=== PATIENT | male | born 1955 | race Caucasian/White ===

== ENCOUNTER → 2019-10-18 | Outpatient (CLI) | payer MEDICARE, SELFPAY | PROVIDERS: Family Provider Nurse Practitioner Family; Visit Provider Internal Medicine Critical Care Medicine | DX: R06.02 Shortness of breath (principal) | CPT/HCPCS: 36415; 82785 ==

== ENCOUNTER 2019-11-25 06:00 | Day surgery (SDC) | payer MEDICARE, SELFPAY ==
[2019-11-22 15:11] VITALS: BMI 38.5
[2019-11-25] VITALS (7 sets, daily range): BP systolic 133–148; BP diastolic 76–90; PULSE 72–97; RESP 16–18; TEMP 36.3–36.8; O2SAT 94–98
--- NOTE | 2019-11-25 05:53 | ECG_ITS ---
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 [email or web address]
[2019-11-25 06:27] LABS: Glucose Point of Care 153 mg/dL (70-110)
--- NOTE | 2019-11-25 06:29 | PM.HPUD ---
H&P update H&P Update: DATE OF SURGERY/PROCEDURE: 11/25/19 DATE H&P PERFORMED: 11/25/19 H&P UPDATE INFORMATION: H&P completed within last 30 days and No changes to prior documentation PREOP DIAGNOSIS: Pulmonary nodules with progressive dyspnea PRIMARY INDICATION FOR PROCEDURE: Progressive dyspnea with history of occupational exposure PLANNED PROCEDURE: Operation Date: 11/25/19 07:00 Proposed Procedures p Bronchoscopy(Not Applicable) - Jamil Rae MD Conscious Sedation: Patient reassessed prior to sedation, with no change noted: Yes PHYSICAL EXAM: alert, oriented x 3, clear to auscultation bilaterally and regular rate & rhythm ADDITIONAL INFORMATION: Anesthesia department will be providing general anesthesia. Full H&P Perinent History: Medical/Surgical History: Medical History (Updated 11/14/19 @ 10:51 by Jamil Rae MD) Pulmonary nodules/lesions, multiple (Acute) Family History: Family History (Updated 11/14/19 @ 10:32 by Dixie Garcia LPN) Other CAD (coronary artery disease) Diabetes Hypertension Social History: Social History Smoking and tobacco status: never smoked Alcohol intake: former Former alcohol use details: QUIT 20 YEARS AGO
[2019-11-25] MEDS: sodium chloride 0.9% 1,000 ML 30 ML IV (06:30)
--- NOTE | 2019-11-25 06:41 | ANES.PREANE2 ---
Pre-Anesthetic Assessment Pre-Anesthetic Assessment: Height/Weight: Height 1.88 m Weight 136.078 kg Temp Pulse Resp BP Pulse Ox 97.3 F L 77 18 145/90 94 11/25/19 06:32 11/25/19 06:32 11/25/19 06:32 11/25/19 06:32 11/25/19 06:32 Preop Diagnosis: Pulmonary nodules with progressive dyspnea Proposed Procedure: Operation Date: 11/25/19 07:00 Proposed Procedures p Bronchoscopy(Not Applicable) - Jamil Rae MD Was Beta Di taken within 24 hours: Yes Last intake: Intake Last Solid Date 11/24/19 Last Solid Time 16:00 Last Intake: 16:00 Social: Social History: No alcohol and No tobacco Exam: Pre-Anes Outpt Exam: alert, oriented x 3, clear to auscultation bilaterally and regular rate & rhythm Airway: Submandibular: WNL Cervical ROM: WNL MP: 2 Dentition: False Pulmonary: Pulmonary: Asthma CV/HEM: CV/HEM: Angina (Stable), CAD, HTN, RI and Murmur Comments: PTCA x3. Seen Dr Ewing 6 months ago. No CP 3-4 months : : None reported Hepatic: Hepatic: None reported GI: GI: GERD Comments: controlled Metabolic: Metabolic: DM Comments: 80-150 Musc/skel: Musc/skel: Lower Back Pain and OA/DJD Neuropsych: Neuropsych: Depression Anesthetic Plan: ASA status: III Anesthesia: Anesthesia Evaluation and General Risk of > 500 ml blood loss (7ml/kg in children): No Other Pertinent Information: ACDF, PTCA, GB with no complications PFSH Anesthesia PFSH: Medical History (Updated 11/14/19 @ 10:51 by Jamil Rae MD) Pulmonary nodules/lesions, multiple (Acute) Family History (Updated 11/14/19 @ 10:33 by Dixie Garcia LPN) Other CAD (coronary artery disease) Diabetes Hypertension Social History (Updated 11/14/19 @ 10:33 by Dixie Garcia LPN) Smoking and tobacco status: never smoked Alcohol intake: former Former alcohol use details: QUIT 20 YEARS AGO Data Anesthesia Other Labs: Laboratory Results - last 48 hr 11/25/19 06:24 POC Glucose 153 Cardiac Studies: No Data to Display
[2019-11-25 06:55] LABS: Hematocrit 41.9 % (42.0-52.0); Hemoglobin 13.9 g/dL (11.7-16.6); Mean Corpuscular HGB Conc 33.2 g/dL (30.0-36.0); Mean Corpuscular Hemoglobin 29.3 pg (28.0-34.0); Mean Corpuscular Volume 88.2 fL (80-94); Platelet Count 205 10^3/cmm (130-400); Red Blood Count 4.75 10^6/uL (4.1-5.3); White Blood Count 6.7 10^3/uL (4.0-10.0)
[2019-11-25] MEDS: cetacaine Spray 5 gm Can 1 SPRAY TOPICAL (06:58)
[2019-11-25 07:02] LABS: INR 1.04 (0.8-1.2)
[2019-11-25 07:06] LABS: Anion Gap 13.3 (5-19); Blood Urea Nitrogen 11 mg/dL (8-23); Calcium 9.1 mg/dL (8.5-10.5); Carbon Dioxide 27 mmol/L (22-29); Chloride 104 mmol/L (98-107); Glomerular Filtration Rate 85.5 mL/min (90-130); Glucose 168 mg/dL (74-106); Osmolality Calculated 290 mOsm/kg (285-295); Potassium 4.3 mmol/L (3.5-5.1); Sodium 140 mmol/L (136-145)
[2019-11-25 07:18] LABS: Absolute Segmented Neutrophil 3.2 10/cmm (1.6-7.1); Lymphocytes 28 %; Monocytes Absolute 0.9 10^3/cmm (0.1-0.6); Segmented Neutrophils 48 %; Total Cells Counted 100 (0-100)
[2019-11-25 07:19] LABS: Absolute Eosinophils 0.6 10^3/cmm (0.0-0.7); Eosinophils 10 %; Platelet Estimate Normal (Normal)
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
--- NOTE | 2019-11-25 07:48 | SUR.PHASEI ---
pt to pacu awake alert verbalized no pain or nausea , pt coughing strongly off and on vss. no distress
[2019-11-27 21:41] LABS: Legionella Specimen Source BRONCH
== END 2019-11-25 08:30 | disposition home or self-care (01) ==
PROVIDERS: Family Provider Nurse Practitioner Family; PCP Nurse Practitioner Family; Visit Provider Thoracic Surgery (Cardiothoracic Vascular Surgery)
PROC: 0BJ08ZZ Inspection of Tracheobronchial Tree, Via Natural or Artificial Opening Endoscopic (ICD-10-PCS; CPT 31622; principal; 2019-11-25 07:00)
DX: R91.1 Solitary pulmonary nodule (principal); R06.00 Dyspnea, unspecified; J45.909 Unspecified asthma, uncomplicated; I25.10 Atherosclerotic heart disease of native coronary artery without angina pectoris; I10 Essential (primary) hypertension; I25.2 Old myocardial infarction; Z95.5 Presence of coronary angioplasty implant and graft; K21.9 Gastro-esophageal reflux disease without esophagitis; E11.9 Type 2 diabetes mellitus without complications; M19.90 Unspecified osteoarthritis, unspecified site; F32.9 Major depressive disorder, single episode, unspecified; Z82.49 Family history of ischemic heart disease and other diseases of the circulatory system; Z83.3 Family history of diabetes mellitus; Z87.891 Personal history of nicotine dependence; Z79.4 Long term (current) use of insulin; Z79.82 Long term (current) use of aspirin
CPT/HCPCS: 31622; 12345; 36415; 36416; 80048; 82962; 85007; 85027; 85610; 87015; 87070; 87102; 87116; 87205; 87206; 87278; 87801; 93005; J0171; J0330; J2704; J3490; J7030

== ENCOUNTER → 2020-01-01 07:52 | Outpatient (BNVA) | payer MEDICARE, SELFPAY | PROVIDERS: Family Provider Nurse Practitioner Family; PCP Nurse Practitioner Family; Visit Provider Anesthesiology | DX: G89.29 Other chronic pain (principal); M54.5 Low back pain; M79.651 Pain in right thigh; M79.652 Pain in left thigh; M47.12 Other spondylosis with myelopathy, cervical region; M47.22 Other spondylosis with radiculopathy, cervical region; M43.22 Fusion of spine, cervical region; M25.511 Pain in right shoulder; M25.512 Pain in left shoulder; Z79.891 Long term (current) use of opiate analgesic | CPT/HCPCS: 99214 ==

== ENCOUNTER → 2020-05-12 08:13 | Outpatient (BNVA) | payer MEDICARE, SELFPAY | PROVIDERS: Family Provider Nurse Practitioner Family; PCP Nurse Practitioner Family; Visit Provider Anesthesiology | DX: G89.29 Other chronic pain (principal); M54.42 Lumbago with sciatica, left side; M54.41 Lumbago with sciatica, right side; M47.12 Other spondylosis with myelopathy, cervical region; M47.22 Other spondylosis with radiculopathy, cervical region; M43.22 Fusion of spine, cervical region; Z79.891 Long term (current) use of opiate analgesic | CPT/HCPCS: 99214 ==

== ENCOUNTER → 2020-07-14 08:01 | Outpatient (BNVA) | payer MEDICARE, SELFPAY | PROVIDERS: Family Provider Nurse Practitioner Family; PCP Nurse Practitioner Family; Visit Provider Anesthesiology | DX: G89.29 Other chronic pain (principal); M54.41 Lumbago with sciatica, right side; M54.42 Lumbago with sciatica, left side; M54.17 Radiculopathy, lumbosacral region; M47.12 Other spondylosis with myelopathy, cervical region; M43.22 Fusion of spine, cervical region; Z79.891 Long term (current) use of opiate analgesic | CPT/HCPCS: 99214 ==

== ENCOUNTER → 2020-09-11 07:51 | Outpatient (BNVA) | payer MEDICARE, SELFPAY | PROVIDERS: Family Provider Nurse Practitioner Family; PCP Nurse Practitioner Family; Visit Provider Anesthesiology | DX: G89.29 Other chronic pain (principal); M54.42 Lumbago with sciatica, left side; M54.17 Radiculopathy, lumbosacral region; M47.12 Other spondylosis with myelopathy, cervical region; M43.22 Fusion of spine, cervical region; Z79.891 Long term (current) use of opiate analgesic | CPT/HCPCS: 99213; 99214 ==

== ENCOUNTER → 2020-11-18 08:24 | Outpatient (BNVA) | payer MEDICARE, SELFPAY | PROVIDERS: Family Provider Nurse Practitioner Family; PCP Nurse Practitioner Family; Visit Provider Anesthesiology | DX: G89.29 Other chronic pain (principal); M54.42 Lumbago with sciatica, left side; M47.12 Other spondylosis with myelopathy, cervical region; M47.22 Other spondylosis with radiculopathy, cervical region; Z79.891 Long term (current) use of opiate analgesic | CPT/HCPCS: 99213 ==

== ENCOUNTER 2020-12-17 09:01 | Outpatient (CLI) | payer MEDICARE, SELFPAY ==
--- NOTE | 2020-12-17 09:17 | CT_ITS ---
WS: [id number] CTA OF THE CHEST WITH PULMONARY EMBOLISM PROTOCOL TECHNIQUE: High-resolution contrast enhanced CTA of the chest with coronal and sagittal reformatted i mages with pulmonary embolism protocol. MIP images are also reviewed. CLINICAL INFORMATION: SHORTNESS OF BREATH/CHEST PAIN AT REST/WEAKNESS/DIZZINESS COMPARISON: CT April 13, 2018 DLP: 621.[address] scans at [facility] use at least one of these dose optimization techniques: automat ed exposure control; mA and/or kV adjustment per patient size (includes targeted exams where dose is matched to clinical indication); or iterative reconstruction. FINDINGS: Proximal main pulmonary arteries are normal. Normal segmental and subsegmental pulmonary arteries. No filling defects. No evidence of pulmonary embolus. Vascular calcification including coronary. Mild chronic emphysematous changes. No acute pulmonary infiltrates. No focal consolidation pleural fl uid. A few subcentimeter noncalcified pulmonary nodules largest right lower lobe measuring 4 mm and r ight upper lobe measuring 5 mm. Normal GE junction. Cholecystectomy clips. Fatty atrophy of the pancreas. Hypertrophic changes thoracic spine. Partially visualized left renal c yst measuring 2.[address]/CT angio chest PE protcl [id number] IMPRESSION: 1. Proximal main pulmonary arteries are normal. No filling defects. No evidenc e of pulmonary embolus. 2. Mild chronic emphysematous changes. No acute pulmonary infiltrates. 3. A few small subcentimeter noncalcified pulmonary nodules largest in the rig ht lower lobe measuring 4 mm and right upper lobe measuring 5 mm. Recommend 12 month follow-up. Recommend 12 month follow-up.
--- NOTE | 2020-12-17 09:17 | XR_ITS ---
WS: [id number] Exam: XR lumbar spine 6V w f/e [id number] Date/Time of Exam: 12/17/2020 9:51 AM Reason For Exam: LOW BACK PAIN RADIATING TO BOTH LEGS Comparison 01/18/2017. No fracture or dislocation. Disc spaces are preserved. Mild spondylosis. No significant subluxation o r instability seen on flexion or extension views. Mild facet DJD at all levels. Mild levoscoliosis. P osterior elements are otherwise intact. Probable bone hemangiomas in the L3 and L4 vertebra represent ing an incidental finding. XR/XR lumbar spine 6V w f/e [id number] IMPRESSION: 1. No fracture or malalignment. 2. No significant subluxation or instability noted on flexion or extension view s. 3. Mild degenerative changes.
--- NOTE | 2020-12-17 09:17 | USCV_ITS ---
Arturo Hernandez Age: 65 Gender: M : 1955 Exam Date: 12/17/2020 09:47 Ordering Phys: Ally Carroll NP Technologist: Savi Gross [place] [facility] [place]: DIZZINESS Risk Factors: Previous Vascular Surgery: Right Brachial BP: / Left Brachial BP: / Right Left Velocity (cm/s) Spectral Plaque Velocity (cm/s) Spectral Plaque Syst/Diast Broadening Syst/Diast Broadening 62.20/ 10.10 Prox CCA 50.40 / 10.10 59.70/ 12.60 Mid CCA 60.50 / 11.10 45.40/ 10.90 Distal CCA 71.80 / 12.90 52.80/ 16.70 Prox ICA 35.50 / 13.70 41.10/ 11.10 Mid ICA 56.40 / 17.70 32.40/ 9.40 Distal ICA 48.20 / 14.10 72.30 ECA 51.80 0.88 ICA/CCA 0.93 Not Vertebral Antegrade Visualized / cm/s 17.70/ 6.80 cm/s Tri Subclavian Tri 37.70 46.70 CONCLUSIONS Right ICA stenosis <50%. Left ICA stenosis <50%. Normal antegrade Doppler flow noted in the left vertebral artery. RIght vertebral artery not visualized Arturo Nesbitt MD (Electronically Signed) Final Date: 17 December 2020 10:21 S
--- NOTE | 2020-12-17 09:17 | USCV_ITS ---
Arturo fernández Age: 65 Gender: M : 1955 Exam Date: 12/17/2020 09:34 Ordering Phys: Ally Carroll NP Technologist: Savi Gross Exam Location: [facility] [place] Indication: SHORTNESS OF BREATH BP: 122 / 58 HR: 59 Rhythm: Sinus Technical Quality: Adequate MEASUREMENTS (Male / Female) Normal Values 2D ECHO LV Diastolic Diameter PLAX 4.6 cm 4.2 - 5.9 / 3.9 - 5.3 cm LV Systolic Diameter PLAX 3.0 cm LV Chamber Size 4.0 cm IVS Diastolic Thickness 1.2 cm 0.6 - 1.0 / 0.6 - 0.9 cm IVS Systolic Thickness 1.5 cm LVPW Diastolic Thickness 2.6 cm 0.6 - 1.0 / 0.6 - 0.9 cm LVPW Systolic Thickness 2.3 cm RV Chamber Size 3.0 cm LVOT Diameter 2.0 cm LV Ejection Fraction 2D Teich 63.7 % LV Ejection Fraction MOD 2C 25.0 % LV Ejection Fraction 2C AL 30.4 % LA Diameter 3.7 cm LA Width 4.0 cm LA Height 5.1 cm RA Width 4.1 cm RA Height 4.0 cm Aorta at Sinotubular Diameter 3.5 cm M-MODE LV Diastolic Diameter MM 5.3 cm 4.2 - 5.9 / 3.9 - 5.3 cm LV Systolic Diameter MM 3.6 cm LV Ejection Fraction MM Teich 60.0 % IVS Diastolic Thickness MM 0.9 cm 0.6 - 1.0 / 0.6 - 0.9 cm IVS Systolic Thickness MM 1.4 cm LVPW Diastolic Thickness MM 1.9 cm 0.6 - 1.0 / 0.6 - 0.9 cm LVPW Systolic Thickness MM 2.1 cm Aortic Annulus Diameter 4.2 cm LA Ao Ratio MM 1.0 MV E Point Septal Separation 1.4 cm DOPPLER AV Peak Velocity 119.0 cm/s LVOT Peak Velocity 100.0 cm/s AV Area Cont Eq vti 2.8 cm squared AV Area Cont Eq pk 2.7 cm squared MV Area PHT 2.4 cm squared Mitral E to A Ratio 0.8 MV E' Velocity 30.0 cm/s Mitral E to MV E' Ratio 5.2 Mitral E to LV E' Lateral Ratio 5.0 Mitral E to LV E' Septal Ratio 5.5 TR Peak Velocity 180.3 cm/s TR Peak Gradient 13.0 mmHg TV Peak E Velocity 46.0 cm/s Right Atrial Pressure 3.0 mmHg Pulmonary Artery Systolic Pressu 16.0 mmHg PV Peak Velocity 69.0 cm/s RV Acceleration Time 0.2 s RV Ejection Time 0.4 s RV AcT/ET 0.5 FINDINGS Left Ventricle Normal left ventricular size, systolic function and wall thickness, with no diagnostic regional wall motion abnormalities. Left ventricular ejection fraction is estimated at 60 %. Normal diastolic function. Right Ventricle Normal right ventricular size and systolic function. Right ventricular systolic pressure 16 mmHg. Right Atrium Normal right atrial size. Left Atrium Upper normal left atrial size. Mitral Valve Structurally normal mitral valve. No mitral valve stenosis. No mitral valve regurgitation. Aortic Valve Structurally normal trileaflet aortic valve. No aortic valve stenosis. No aortic valve regurgitation. Tricuspid Valve Structurally normal tricuspid valve. Trace to mild tricuspid valve regurgitation. Pulmonic Valve Pulmonic valve not well visualized. No pulmonary valve stenosis. Pericardium No pericardial effusion. Aorta Normal size aortic root and proximal ascending aorta. CONCLUSIONS 1. Normal left ventricular size, systolic function and wall thickness, with no diagnostic regional wall motion abnormalities. Left ventricular ejection fraction is estimated at 60 %. Normal diastolic function. 2. No significant valvular abnormality. 3. Normal pulmonary artery pressure. 4. When compared to previous study report dated 12/03/2013, left ventricular systolic function seems to have improved. Emily Rangel MD (Electronically Signed) Final Date: 22 December 2020 22:57 S
--- NOTE | 2020-12-17 09:17 | XR_ITS ---
WS: [id number] Exam: XR thoracic spine 3V* [id number] Date/Time of Exam: 12/17/2020 9:51 AM Reason For Exam: LOW BACK PAIN RADIATING TO BOTH LEGS No acute fracture or dislocation. There is spondylosis and degenerative disc changes at all levels. M ild dextroscoliosis. Paraspinal soft tissues are unremarkable. Anterior fusion of the cervical spine from C3 to C5. XR/XR thoracic spine 3V* [id number] IMPRESSION: 1. Degenerative changes and spondylosis of the T-spine but no fracture or malal ignment. Dextroscoliosis.
[2020-12-17 10:36] LABS: Blood Urea Nitrogen 10 mg/dL (8-23); Glomerular Filtration Rate 113.9 mL/min (90-130)
[2020-12-17] MEDS: iohexol 350 mg/mL 100 mL Btl IV (11:10)
== END 2020-12-17 09:02 | disposition home or self-care (01) ==
LOC: RAD 09:08
PROVIDERS: PCP Nurse Practitioner Family; Visit Provider Nurse Practitioner Family
DX: R06.02 Shortness of breath (principal); R07.9 Chest pain, unspecified; R53.1 Weakness; R42 Dizziness and giddiness; M47.814 Spondylosis without myelopathy or radiculopathy, thoracic region; R91.8 Other nonspecific abnormal finding of lung field; I65.23 Occlusion and stenosis of bilateral carotid arteries
CPT/HCPCS: 71275; 72072; 72114; 82565; 84520; 93306; 93880

== ENCOUNTER → 2021-01-12 10:14 | Outpatient (BNVA) | payer MEDICARE, SELFPAY | PROVIDERS: PCP Nurse Practitioner Family; Visit Provider Anesthesiology | DX: G89.29 Other chronic pain (principal); M54.17 Radiculopathy, lumbosacral region; M47.12 Other spondylosis with myelopathy, cervical region; M43.22 Fusion of spine, cervical region; Z79.891 Long term (current) use of opiate analgesic | CPT/HCPCS: 99213 ==

== ENCOUNTER → 2021-03-12 10:21 | Outpatient (BNVA) | payer MEDICARE, SELFPAY | PROVIDERS: PCP Nurse Practitioner Family; Visit Provider Anesthesiology | DX: G89.29 Other chronic pain (principal); M47.22 Other spondylosis with radiculopathy, cervical region; M47.12 Other spondylosis with myelopathy, cervical region; M43.22 Fusion of spine, cervical region; Z79.891 Long term (current) use of opiate analgesic | CPT/HCPCS: 99214 ==

== ENCOUNTER 2021-04-27 12:52 | Outpatient (CLI) | payer MEDICARE, SELFPAY ==
--- NOTE | 2021-04-27 13:02 | US_ITS ---
WS: [id number] DIAGNOSTIC BILATERAL DIGITAL MAMMOGRAM WITH CAD RIGHT breast ultrasound, limited HISTORY: RT BREAST MASS, prior RIGHT breast biopsy was benign. COMPARISON: 08/24/2018 and 01/31/2018 TECHNIQUE: Bilateral craniocaudad, mediolateral oblique, and mediolateral views are submitted. Spot c ompression RIGHT CC. Computer aided detection utilized. Breast composition: The breasts are almost entirely fatty. Dense fibroglandular pattern posterior to the RIGHT nipple. This has progressed since the prior study of 08/24/2018. There is a biopsy clip in t he anterior breast from the prior biopsy. No adenopathy. The LEFT breast is fatty replaced as expecte d. RIGHT breast ultrasound, limited. Ultrasound directed to the central RIGHT breast in the area of the palpable abnormality. There is a s oft tissue mass with dendritic-like extensions measuring 5.0 x 2.4 x 1.6 cm. There is increased vascu larity. Most typical appearance for gynecomastia. No adenopathy. 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 No adenopathy.
== END 2021-04-27 12:53 | disposition home or self-care (01) ==
LOC: RADSHAW 12:55
PROVIDERS: PCP Nurse Practitioner Family; Visit Provider Nurse Practitioner Family
DX: N63.10 Unspecified lump in the right breast, unspecified quadrant (principal)
CPT/HCPCS: 76642; 77066

== ENCOUNTER → 2021-05-06 08:44 | Outpatient (BNVA) | payer MEDICARE, SELFPAY | PROVIDERS: PCP Nurse Practitioner Family; Visit Provider Anesthesiology | DX: G89.29 Other chronic pain (principal); M54.5 Low back pain; M47.12 Other spondylosis with myelopathy, cervical region; M47.22 Other spondylosis with radiculopathy, cervical region; M43.22 Fusion of spine, cervical region; Z79.891 Long term (current) use of opiate analgesic | CPT/HCPCS: 99214 ==

== ENCOUNTER → 2021-07-13 08:53 | Outpatient (BNVA) | payer MEDICARE, SELFPAY | PROVIDERS: PCP Nurse Practitioner Family; Visit Provider Nurse Practitioner | DX: G89.29 Other chronic pain (principal); M43.22 Fusion of spine, cervical region; M47.12 Other spondylosis with myelopathy, cervical region; M47.22 Other spondylosis with radiculopathy, cervical region; Z79.891 Long term (current) use of opiate analgesic | CPT/HCPCS: 99214 ==

== ENCOUNTER 2021-12-01 09:54 | Outpatient (CLI) | payer MEDICARE, SELFPAY ==
--- NOTE | 2021-12-01 10:25 | CT_ITS ---
WS: [id number] CT CHEST TECHNIQUE: Noncontrast CT of the chest with coronal and sagittal reformatted images. CLINICAL INFORMATION: LUNG NODULE,MULTIPLE COMPARISON: CT December 17, 2020 And April 13, 2018 DLP: 777.[address] scans at [facility] use at least one of these dose optimization techniques: automated e xposure control; mA and/or kV adjustment per patient size (includes targeted exams where dose is matc hed to clinical indication); or iterative reconstruction. FINDINGS: Lungs are well aerated. No acute pulmonary infiltrates. No focal pneumonia or pleural fluid. Normal c aliber thoracic aorta. Mild aortic calcification. Coronary stent. No mediastinal or hilar lymphadenop athy. No axillary lymphadenopathy. Adrenal glands are normal. Fatty atrophy of the pancreas. Cholecystectomy clips. Normal GE junction. Hypertrophic changes thoracic spine with mild thoracic kyphosis. Stable 4 mm pulmonary nodule RIGHT l ower lobe. 5 mm subpleural nodule not visualized today. Additional tiny RIGHT lower lobe medial pulmo nary nodule unchanged. Tiny LEFT lower lobe pulmonary nodule medially also unchanged. No new pulmonar y nodules. CT/CT chest wo con [id number] IMPRESSION: 1. A few stable subcentimeter pulmonary nodules the largest in the RIGHT lower lobe measuring 4 mm unchanged. Recommend 12 month follow-up. 2. No mediastinal or hilar lymphadenopathy. 3. No other significant findings.
== END 2021-12-01 09:55 | disposition home or self-care (01) ==
PROVIDERS: PCP Nurse Practitioner Family; Visit Provider Surgery
DX: R91.8 Other nonspecific abnormal finding of lung field (principal)
CPT/HCPCS: 71250

== ENCOUNTER 2021-12-06 09:33 | Outpatient (CLI) | payer MEDICARE, SELFPAY ==
[2021-12-06] MEDS: iohexol 300 mg/mL 50 mL Btl PO (11:04)
[2021-12-06 11:10] LABS: Blood Urea Nitrogen 10 mg/dL (8-23)
--- NOTE | 2021-12-06 12:00 | CT_ITS ---
WS: [id number] CT ABDOMEN AND PELVIS WITH CONTRAST HISTORY: R10.9 - Unspecified abdominal pain TECHNIQUE: Imaging performed of the abdomen and pelvis with IV contrast. Single phase imaging of the abdomen. Coronal and sagittal reformats are submitted. All CT scans at [facility] use at [address] one of these dose optimization techniques: automated exposure control; mA and/or kV adjustment per patient size (includes targeted exams where dose is matched to clinical indication); or iterative re construction. IV CONTRAST: Omnipaque 300; 95 mL IV. Oral contrast: Yes. DLP: 1413.03 mGy.cm COMPARISON: 11/28/2017 Lower thorax: Lung bases are clear. Heart is normal size. Small hiatal hernia. Liver/biliary system: Normal size with no intrahepatic dilatation. Gallbladder: Status post cholecystectomy. No bile duct dilatation. Pancreas: Fatty replacement of the pancreas. No mass. Spleen: Normal size spleen. No mass or infarct. Adrenal glands: Normal. Right kidney: Normal. Left kidney: Normal size LEFT kidney. There are 2 low-attenuation masses associated with the LEFT kid belen. Both of these were present on the study of 11/28/2017 without significant increase in size. The la rgest measures 2.5 cm in the upper pole posteriorly. Additional anterior upper pole 2.2 cm low-attenu ation mass. Neither of these are cystic but they are stable and may be complex cysts or hemorrhagic c yst. Aorta: Mild atherosclerosis with no aneurysm. Lymphadenopathy: None. Free fluid: None. GI tract: Normally distended stomach. No small bowel obstruction. Moderate diffuse constipation and f ecal retention. No evidence for sinusitis. No acute inflammation. Very few diverticula in the distal colon. Abdominal wall: Unremarkable abdominal wall. No hernia. Pelvis: Normally distended urinary bladder. Prostate is not significantly enlarged. No adenopathy or fluid. Bones: Increase in the lumbar lordosis. No osteoblastic or osteolytic bone disease. Moderate narrowin g of the hip joints bilaterally. Mild bilateral sacroiliitis. Partial fusion of the SI joints. CT/CT abdomen pelvis w con* [id number] IMPRESSION: 1. Status post cholecystectomy. 2. No adenopathy or free fluid. 3. Long-term stability low-attenuation masses associated with the LEFT kidney. No increase in size since 11/28/2017. These may be complex cysts or very slow gr owing low-grade neoplasms. 4. Mild constipation. 5. Partial fusion of the SI joints.
== END 2021-12-06 09:34 | disposition home or self-care (01) ==
LOC: RAD 09:39
PROVIDERS: PCP Nurse Practitioner Family; Visit Provider Surgery
DX: R10.9 Unspecified abdominal pain (principal); Z98.890 Other specified postprocedural states; Z87.19 Personal history of other diseases of the digestive system; Z90.49 Acquired absence of other specified parts of digestive tract; K59.00 Constipation, unspecified; N28.9 Disorder of kidney and ureter, unspecified
CPT/HCPCS: 74177; 82565; 84520

== ENCOUNTER 2021-12-14 10:40 | Outpatient (CLI) | payer MEDICARE, SELFPAY ==
--- NOTE | 2021-12-14 10:57 | XR_ITS ---
WS: [id number] Exam: XR cervical spine min 6V [id number] Date/Time of Exam: 12/14/2021 11:01 AM Reason For Exam: CERVICAL PAIN Comparison 05/23/2017. Anterior cervical fusion noted from C3 to C5 with disc spacers at C3-4 and C4-5. The fusion remains i n good alignment. No sign of hardware failure. Mild facet DJD at all levels. No flexion or extension instability. The odontoid is intact. There is mild narrowing of the intervertebral foramina bilateral ly at C3-4 and C4-5. This is secondary to uncovertebral spurring. Normal paraspinal soft tissues. XR/XR cervical spine min 6V [id number] IMPRESSION: 1. Stable-appearing anterior fusion from C3 to C5. The fusion remains in good a lignment. 2. Mild facet DJD at all levels. 3. No fracture or instability. 4. Mild degenerative narrowing of the intervertebral foramina bilaterally at C3 -4 and C4-5.
--- NOTE | 2021-12-14 10:57 | XR_ITS ---
WS: [id number] Exam: XR knee LT 3V* [id number] Date/Time of Exam: 12/14/2021 11:01 AM Reason For Exam: INJURY OF L KNEE Comparison 03/13/2019. No fracture or dislocation. Mild degenerative narrowing of the medial joint compartment. No joint eff usion. Stable appearing cortical calcification along the medial tibial plateau. Mild spurring of the posterior patella. XR/XR knee LT 3V* [id number] IMPRESSION: 1. Degenerative changes. No evidence of fracture or joint effusion. Nasima goncalves since prior study.
== END 2021-12-14 10:41 | disposition home or self-care (01) ==
LOC: RAD 10:45
PROVIDERS: PCP Nurse Practitioner Family; Visit Provider Nurse Practitioner Family
DX: S89.92XA Unspecified injury of left lower leg, initial encounter (principal); X58.XXXA Exposure to other specified factors, initial encounter; M47.812 Spondylosis without myelopathy or radiculopathy, cervical region; Z98.1 Arthrodesis status
CPT/HCPCS: 72052; 73562

== ENCOUNTER 2021-12-21 06:56 | Outpatient (CLI) | payer MEDICARE, SELFPAY ==
--- NOTE | 2021-12-21 07:04 | US_ITS ---
WS: [id number] ULTRASOUND ABDOMEN CLINICAL INFORMATION: ABDOMINAL PAIN OF UNKNOWN ETIOLOGY COMPARISON: Prior CT December 06, 2021 and 2 ,018 FINDINGS: Technically difficult examination due to bowel gas Liver Size: Enlarged Craniocaudal length: 18.5 cm. Echogenicity: Coarse Surface nodularity: None. Mass (size and location): None. Bile ducts Intrahepatic ducts: Normal. Common bile duct diameter: 11 mm. Gallbladder Surgically absent Pancreas Not well seen due to bowel gas Spleen Splenomegaly: Present Craniocaudal length: 13.5 cm. Right kidney: Normal. Hydronephrosis: None. Size: 12.2 cm x 5.7 cm x 5.7 cm Left kidney: LEFT kidney simple cyst measuring 2.4 x 1.8 x 1.9 cm Hydronephrosis: None. Size: 12.9 cm x 5.7 cm x 5.4 cm. Abdominal aorta and IVC Visualized portions are normal. Ascites: None. US/US abdomen complete* [id number] IMPRESSION: Technically difficult examination due to bowel gas. 1. Mild hepatomegaly with diffuse fatty infiltration.. 2. Prior cholecystectomy. 3. No hydronephrosis in either kidney. 4. Splenomegaly. 5. Dilated common bile duct measuring 11 mm likely cyst physiologic postcholec ystectomy. This appears unchanged since 2018 6. LEFT kidney simple cyst measuring 2.4 x 1.8 x 1.9 cm
== END 2021-12-21 06:57 | disposition home or self-care (01) ==
LOC: RAD 06:59
PROVIDERS: PCP Nurse Practitioner Family; Visit Provider Nurse Practitioner Family
DX: R16.0 Hepatomegaly, not elsewhere classified (principal); K76.0 Fatty (change of) liver, not elsewhere classified; Z90.49 Acquired absence of other specified parts of digestive tract; R16.1 Splenomegaly, not elsewhere classified; N28.1 Cyst of kidney, acquired
CPT/HCPCS: 76700

== ENCOUNTER → 2023-05-30 13:53 | Outpatient (BNVA) | payer MEDICARE, SELFPAY | PROVIDERS: PCP Nurse Practitioner Family; Visit Provider Internal Medicine | DX: R07.9 Chest pain, unspecified (principal); I25.10 Atherosclerotic heart disease of native coronary artery without angina pectoris; I10 Essential (primary) hypertension | CPT/HCPCS: 93005; 99214 ==

== ENCOUNTER 2023-06-21 07:11 | Outpatient (CLI) | payer MEDICARE, SELFPAY ==
[2023-06-21] VITALS (14 sets, daily range): BP systolic 108–165; BP diastolic 69–98; PULSE 55–65; RESP 4–20; O2SAT 93–98; BMI 39.8
[2023-06-21] MEDS: diphenhydrAMINE 50 mg Capsule PO (07:30)
--- NOTE | 2023-06-21 07:30 | XACV_ITS ---
Exam Room: 2 Ht: 188 cm Wt: 141 kg BSA: 2.76 m2 Gender: Male : 1955 Any Known Allergies: Other Exam Priority: Routine Procedure(s): Procedure Description: Diagnostic procedure Procedure Description: Miscellaneous Procedure Description: Angio-Seal Procedure Description: Coronary Angiography Procedure Description: Pressure Wire Diagnostic Cath Status: Elective Diagnostic Findings * Left Main has no significant disease. * Circumflex has no significant disease. * Right Coronary Artery has no significant disease. * Mid Left Anterior Descending: moderate 50% in-stent restenosis, CARL: 3 flow. * Coronary angiography shows right dominance. PCI Status: Elective Interventional Findings * PROCEDURE DETAIL: We engaged left main artery with XB 4 guide catheter. IV heparin was administered to maintain anticoagulation. After normalization, IFR wire was advanced into distal vessel. iFR of the mid LAD in-stent restenosis showed a value of 0.93 that was nonischemic. At this time final angiogram was performed. iFR wire and guide catheter were removed. Patient left the Residential Worker in a stable condition.. Conclusions 1. Moderate in-stent restenosis of mid LAD 2. stent. S/p IFR 3. that is nonischemic with a value of 0.93. 4. Medical therapy.. Recommendations * Aggressive risk factor modification. * Outpatient cardiology follow up in 4 weeks. Interventional RX Recommendation: medical therapy and/or counseling Anticoagulation: Heparin Pressures Phase:Rest AO : 123 / 93 ( 110 ) @ 9:46:00 AM 122 / 92 ( 108 ) @ 9:47:00 AM 143 / 86 ( 110 ) @ 9:56:00 AM 142 / 83 ( 110 ) @ 10:08:00 AM Clinical Evaluation EBL: 5mL-10mL Procedural Details Procedure Consent Obtained. Pre-Procedure Time Out. Identified patient by full name and date of as verbalized by the patient/guarantor. Does the consent match the physician's order: Yes. Accurate & Complete Informed Consent: Yes. Inpatient/Outpatient History & Physical on Chart: Yes. If H&P is completed, is and addenduem needed: No. Visualize and Verify Site with Patient/Guarantor: N/A. Relevant Radiology Images available: Yes. The risks, benefits, and alternatives of sedation and/or procedure were discussed by physician. The patient agrees to continue. Procedure started. [facility] Clinical Fraility Score: 3: Managing Well. Residential Worker Indications: Worsening Angina. Chest Pain Symptom Assessment: Typical Angina Symptoms. Cardiovascular Instability: No. Correct patient, site and procedure confirmed by cath team. PERRLA. Strong, equal hand model builder bilaterally. Lungs clear x 5 lobes. IV Site on Arrival: 20 gauge in the left anticubital. IV Fluids: 0.9% NaCl at KVO. 0 mL infused prior to confectionery laboratory manager. Pre Procedural Pulses: bilateral dorsalis pedis was 2+. Pre Procedural Pulses: bilateral posterior tibial was 2+. Pre Procedural Pulses: bilateral radial was 3+. Oxygen started at 2liters/min via nasal canula. right groin was prepped with chloroprep then draped in the usual sterile fashion. right radial was prepped with chloroprep then draped in the usual sterile fashion. Physician notified. Baseline sample Acquired. HR: 56 BPM. Patient's family in CPRU room #2. Dr. Diana will update at the completion of the procedure. Equipment: 6F - Radial. Cardiac Cath Pack. ACIST Manifold Kit Model BT 2000. Heparinized Saline (2 units/mL), 1000 mL bag. Physician arrived. Immediate Pre-Procedure Time Out. Correct Patient: Yes; Correct Procedure: Yes; Correct Site: Yes; Correct Patient Position: Yes; Correct Supplies: Yes; Dried Flammable Prep: Yes; Blood Products Available: N/A;. Lidocaine 1% infiltrated to the right radial. Arterial access obtained. A 5 guinean TIG catheter in over the exchange J wire. Multiple views taken of left coronary artery. Catheter removed over the exchange J wire. A 5 guinean JR4 catheter in over the exchange J wire. Multiple views taken of right coronary artery. Catheter removed over the exchange J wire. 6 guinean XB 3.5 guide catheter was inserted over the exchange J wire. Guide catheter out over the exchange J wire. 6 guinean XB 4 guide catheter was inserted over the exchange J wire. Guide catheter out over the exchange J wire. A TR Band was successful obtaining hemostatsis at the Right Radial artery insertion site. Lidocaine 1% infiltrated to the right groin. Arterial access obtained with micropuncture set using ultrasound guidance. 6 guinean XB 3.5 guide catheter was inserted over the exchange J wire. iFR guidewire was advanced through the guide catheter to lesion in the mid LAD. Guide catheter out over the exchange J wire. 6 guinean XB 4 guide catheter was inserted over the exchange J wire. IFR = 0.93 with a pullback of 0.93. Guide catheter out over the exchange J wire. Results checked. A Right femoral angiogram was performed to determine safe placement of closure device. A Angio-Seal VIP ([employer]) was successful obtaining hemostatsis at the Right Femoral artery insertion site. Lot # [id number]. Exp. 2023-11-22. Hemostasis was achieved. Sterile 4x4 and Op-site applied to the puncture site. No oozing or hematoma noted. Post sheath removal instructions were given and the patient verbalized understanding. Post Procedure: Pulses reassessed and unchanged. PERRLA. Strong, equal hand model builder bilaterally. No VTE prophylaxis required. Medication's Wasted: Nitro = 49.8 mg. Medication's Wasted: Other = fentanyl 50 mcg. Medication's Wasted: Lidocaine 1% = 1 mL. Total IV fluids: 64 mL. Post-op diagnosis: Mod LAD stenisos. iFR = 0.93. Complications: none. Estimated blood loss: 5mL-10mL. Responsiveness - Normal response to verbal stimuli; alert and oriented, PERRLA. Airway - Unaffected, no intervention required; spontaneous ventilation. Circulation: W/N/L, pulses unchanged. Nausea/Vomiting: No. Procedure completed. Patient transferred by bed to CPRU. Vital chart was stopped. Access Site Site: Right Radial artery Sheath Size: 6 Fr Hemostasis Method: TR Band Hemostasis Success: Successful Site: Right Femoral artery Sheath Size: 6 Fr Hemostasis Method: Angio-Seal VIP ([employer]) Hemostasis Success: Successful Procedure Medications Start: 8:33 AM Stop: 8:33 AM Medication: Versed Amount: 1 mg Route: I.V. Start: 8:33 AM Stop: 8:33 AM Medication: Fentanyl Amount: 50 mcg Route: I.V. Start: 8:38 AM Stop: 8:38 AM Medication: Nitrogylcerin Amount: 200 mcg Route: I.A. Start: 8:40 AM Stop: 8:40 AM Medication: Heparin Amount: 5000 units Route: I.V. Start: 8:56 AM Stop: 8:56 AM Medication: Versed Amount: 1 mg Route: I.V. Start: 8:56 AM Stop: 8:56 AM Medication: Fentanyl Amount: 50 mcg Route: I.V. Start: 8:56 AM Stop: 8:56 AM Medication: Fentanyl Amount: 50 mcg Route: I.V. Start: 9:07 AM Stop: 9:07 AM Medication: Heparin Amount: 6000 units Route: I.V. Start: 9:16 AM Stop: 9:16 AM Medication: Versed Amount: 1 mg Route: I.V. I, the attending physician, have reviewed and verified all procedure medications. Yes, all medications given per verbal order History/Risk Factors Hypertension: Yes Dyslipidemia: Yes Peripheral Arterial Disease (PAD): No Myocardial Infarction (MT): No Obesity: Yes Renal Disease: No Tobacco Use: Former Prior Interventions PCI: Yes CABG: No Valve Surgery: No Date of PCI: 06/17/2014 Report Signatures Finalized by Ken Diana MD on 06/29/2023 05:10 PM
[2023-06-21 07:34] LABS: Glucose Point of Care 132 mg/dL (70-110)
[2023-06-21 07:46] LABS: Basophils # 0.1 10^3/uL (0.0-0.1); Basophils % 0.8 %; Eosinophils # 0.6 10^3/uL (0.0-0.8); Eosinophils % 9.1 %; Hematocrit 41.5 % (37-53); Lymphocytes # 1.4 10^3/uL (0.8-4.8); Lymphocytes % 22.2 %; Mean Corpuscular HGB Conc 32.3 g/dL (30-55); Mean Corpuscular Hemoglobin 30.4 pg (27-33); Mean Corpuscular Volume 94.1 fl (82-101); Mean Platelet Volume 9.6 fL (7.4-10.4); Monocytes # 0.6 10^3/uL (0.2-0.9); Monocytes % 10.4 %; Neutrophils # 3.48 10^3/uL (1.8-7.7); Neutrophils % 57.3 %; Nucleated Red Blood Cells % 0 %; Platelet Count 231 10^3/cmm (157-399); Red Blood Count 4.41 10^6/uL (3.85-5.65); White Blood Count 6.07 10^3/uL (3.29-11.43)
[2023-06-21 08:08] LABS: Blood Urea Nitrogen 11 mg/dL (8-23); Calcium 8.7 mg/dL (8.5-10.5); Carbon Dioxide 31 mmol/L (22-29); Chloride 105 mmol/L (98-107); Glomerular Filtration Rate 112.8 mL/min (90-130); Glucose 136 mg/dL (65-115); Osmolality Calculated 295 mOsm/kg (285-295); Sodium 142 mmol/L (136-145)
--- NOTE | 2023-06-21 08:29 | P.HPUD_ITS ---
Surgery/Procedure H&P Update DATE OF PROCEDURE: June 21, 2023 DATE H&P PERFORMED: 05/30/23 H&P UPDATE INFORMATION: I have reviewed H&P completed within last 30 days, I have examined patient prior to procedure and No changes to prior documentation PREOP DIAGNOSIS: Worsening angina PRIMARY INDICATION FOR PROCEDURE: Worsening angina PLANNED PROCEDURE: Operation Date: 06/21/23 08:30 Proposed Procedures p [facility] 64509,I20.0(Left) - Ken Diana M.D Possible percutaneous coronary intervention PATIENT REASSESSED PRIOR TO SEDATION, WITH NO CHANGE NOTED: Yes PHYSICAL EXAM: alert, oriented x 3 and clear to auscultation bilaterally AIRWAY EVAL/ANESTHESIA PLAN: normal airway, ASA III, Local Anesthesia, Risks, benefits & alternatives of sedation and/or procedure discussed and Patient agrees to continue as planned ADDITIONAL INFORMATION: Moderate sedation
--- NOTE | 2023-06-21 10:15 | PC.NURSE ---
Around 0915: Transfer orders received. TR band to patient's right wrist clean, dry, et intact. No drainage or hematoma. Dressing over angioseal site to patients right groin dry et intact. No drainage or hematoma. Vitals stable. No c/o pain or discomfort. Patient transferred from CPRU to CSU via hospital bed. All belonging sent with patient.
[2023-06-21 12:02] LABS: Glucose Point of Care 106 mg/dL (70-110)
[2023-06-21 16:26] LABS: Glucose Point of Care 170 mg/dL (70-110)
--- NOTE | 2023-06-21 17:54 | PC.NURSE ---
Discharge Note Patient discharged to [home] via [w/c to POV] accompanied by [spouse]. Discharge instructions reviewed with patient and/or hotel services sales representative. Mobile pharmacy medications and/or prescriptions provided. Belongings/home medications returned.
== END 2023-06-21 14:40 | disposition home or self-care (01) ==
LOC: CCL 07:11 → CSU 14:41
PROVIDERS: PCP Nurse Practitioner Family; Visit Provider Internal Medicine
DX: I25.110 Atherosclerotic heart disease of native coronary artery with unstable angina pectoris (principal); I10 Essential (primary) hypertension; E78.5 Hyperlipidemia, unspecified; E66.9 Obesity, unspecified; Z68.39 Body mass index [BMI] 39.0-39.9, adult; Z87.891 Personal history of nicotine dependence; E11.9 Type 2 diabetes mellitus without complications; Z79.4 Long term (current) use of insulin
CPT/HCPCS: 36415; 36416; 80048; 82962; 85025; 93454; 93571; 96361; 96365; 96367; 99152; 99153; C1760; C1769; C1887; C1894; G0378; J1644; J2250; J3010; J3490; J7030; Q0163; Q9967

== ENCOUNTER → 2023-07-14 10:57 | Outpatient (BNVA) | payer MEDICARE, SELFPAY | PROVIDERS: PCP Nurse Practitioner Family; Visit Provider Nurse Practitioner Family | DX: I25.10 Atherosclerotic heart disease of native coronary artery without angina pectoris (principal); I10 Essential (primary) hypertension | CPT/HCPCS: 80048; 99214 ==

== ENCOUNTER → 2023-08-08 16:37 | Outpatient (BNVA) | payer MEDICARE, SELFPAY | PROVIDERS: PCP Nurse Practitioner Family; Referring Provider Nurse Practitioner Family; Visit Provider Internal Medicine Pulmonary Disease | DX: J30.2 Other seasonal allergic rhinitis (principal); J84.9 Interstitial pulmonary disease, unspecified; R06.02 Shortness of breath; J45.51 Severe persistent asthma with (acute) exacerbation; R91.8 Other nonspecific abnormal finding of lung field; M06.9 Rheumatoid arthritis, unspecified; Z79.52 Long term (current) use of systemic steroids | CPT/HCPCS: 82785; 86003; 99214 ==

== ENCOUNTER 2023-08-18 05:56 | Outpatient (CLI) | payer MEDICARE, SELFPAY ==
--- NOTE | 2023-08-18 06:30 | CT_ITS ---
WS: [id number] CT CHEST CT-HIGH RESOLUTION, NONCONTRAST. HISTORY: Interstitial lung disease. Technique: High-resolution chest CT is performed in inspiration, expiration, supine and prone positio johny. All CT scans at [facility] use at least one of these dose optimization techniques: automated exposure control; mA and/or kV adjustment per patient size (includes targeted exams where dose is mat ched to clinical indication); or iterative reconstruction. DLP: 2450.01 mGy.cm COMPARISON: 12/01/2021, 04/13/2018 Findings: Lungs are well aerated. Previously described nodule superior segment RIGHT lower lobe is id entified. No interval change since 2018. No mass. Very mild dependent changes at the lung bases. There is no honeycombing or bronchiectasis. No mosaic attenuation on the inspiratory study. On the expiratory exam there is no air trapping or mosaic atten uation. Very slight increased attenuation in the lower lung fitzgerald during expiration which improves d uring prone positioning. Mild atherosclerosis aorta Pulmonary artery is mildly enlarged measuring up to 3.7 cm. Heart is top normal size Coronary artery calcifications in the LEFT anterior descending artery. There is no pericardial effusi on. No adenopathy appreciated. Bilateral mild gynecomastia. Small hiatal hernia. Cysts have been previously described in the LEFT ki dney. Masses in the superior pole of the LEFT kidney are incompletely visualized. The largest measure s 3.4 x 3.5 cm. This cyst has increased in size since 2021. Hounsfield unit is 6 suggesting this is a cyst. No destructive bone lesions. Impression: 1. No evidence for pulmonary fibrosis or interstitial lung disease. There is no honeycombing or bronc hiectasis. No interstitial thickening or mosaic attenuation. 2. Long-term stability nodule superior segment RIGHT lower lobe. Only a single nodule identified toda y. 3. Pulmonary artery is prominent suggesting pulmonary hypertension. 4. No mediastinal or hilar adenopathy.
== END 2023-08-18 05:57 | disposition home or self-care (01) ==
LOC: RAD 05:56
PROVIDERS: PCP Nurse Practitioner Family; Visit Provider Internal Medicine Pulmonary Disease
DX: J84.9 Interstitial pulmonary disease, unspecified (principal); R91.1 Solitary pulmonary nodule
CPT/HCPCS: 71250

== ENCOUNTER → 2023-10-10 13:43 | Outpatient (BNVA) | payer MEDICARE, SELFPAY | PROVIDERS: PCP Nurse Practitioner Family; Visit Provider Internal Medicine Pulmonary Disease | DX: R91.8 Other nonspecific abnormal finding of lung field (principal); J45.51 Severe persistent asthma with (acute) exacerbation; Z79.52 Long term (current) use of systemic steroids; M06.9 Rheumatoid arthritis, unspecified | CPT/HCPCS: 99214 ==

== ENCOUNTER → 2023-10-25 11:45 | Outpatient (BNVA) | payer MEDICARE, SELFPAY | PROVIDERS: PCP Nurse Practitioner Family; Visit Provider Internal Medicine | DX: I25.10 Atherosclerotic heart disease of native coronary artery without angina pectoris (principal); I10 Essential (primary) hypertension | CPT/HCPCS: 80048; 83880; 99214 ==

== ENCOUNTER 2023-10-30 05:52 | Outpatient (CLI) | payer MEDICARE, SELFPAY ==
--- NOTE | 2023-10-30 06:15 | USCV_ITS ---
Arturo Hernandez Age: 68 Gender: M : 1955 Exam Date: 10/30/2023 06:19 Ordering Phys: Ken Diana M.D ([email or web address]) Technologist: MALIK [place] [facility] [place]: sob cp BP: 120 / 74 HR: 60 Rhythm: Sinus Technical Quality: Adequate MEASUREMENTS (Male / Female) Normal Values 2D ECHO LV Diastolic Diameter PLAX 5.2 cm 4.2 - 5.9 / 3.9 - 5.3 cm LV Systolic Diameter PLAX 2.9 cm IVS Diastolic Thickness 1.2 cm 0.6 - 1.0 / 0.6 - 0.9 cm IVS Systolic Thickness 1.7 cm LVPW Diastolic Thickness 1.8 cm 0.6 - 1.0 / 0.6 - 0.9 cm LVPW Systolic Thickness 1.6 cm LVOT Diameter 2.1 cm LV Ejection Fraction 2D Teich 75.6 % LV Ejection Fraction MOD 2C 60.2 % LV Ejection Fraction 2C AL 59.8 % LA Diameter 4.3 cm IVC Diameter 2.1 cm M-MODE Aortic Annulus Diameter 4.3 cm LA Ao Ratio MM 1.0 MV E Point Septal Separation 1.5 cm DOPPLER AV Peak Velocity 154.0 cm/s LVOT Peak Velocity 107.0 cm/s AV Area Cont Eq vti 2.6 cm squared AV Area Cont Eq pk 2.5 cm squared MV Area PHT 3.9 cm squared Mitral E to A Ratio 1.2 MV E' Velocity 47.0 cm/s Mitral E to MV E' Ratio 2.1 Mitral E to LV E' Lateral Ratio 6.9 Mitral E to LV E' Septal Ratio 1.3 TR Peak Velocity 162.3 cm/s TR Peak Gradient 10.5 mmHg TV Peak E Velocity 91.0 cm/s Right Atrial Pressure 3.0 mmHg Pulmonary Artery Systolic Pressu 13.5 mmHg RV Acceleration Time 0.1 s FINDINGS Left Ventricle Left ventricle is normal in size. LV systolic function is normal with EF of 55 to 60%. No regional wall motion abnormalities are seen. Right Ventricle Normal size and function Right Atrium Normal in size Left Atrium Left atrium is dilated. Mitral Valve Structurally normal mitral valve. Aortic Valve Structurally normal aortic valve. No significant stenosis. Tricuspid Valve Trace tricuspid regurgitation. Insufficient TR jet to evaluate RVSP. Pulmonic Valve Not well-visualized. Pericardium Normal Aorta Normal in size IVC Appears to be normal CONCLUSIONS LV systolic function is normal with EF 55 to 60%. Left atrial dilation Trace tricuspid regurgitation Compared to prior echocardiogram from 12/13/2020, no significant changes are seen. Ken Diana MD (Electronically Signed) Final Date: 14 November 2023 10:59 S
== END 2023-10-30 05:53 | disposition home or self-care (01) ==
PROVIDERS: PCP Nurse Practitioner Family; Visit Provider Internal Medicine
DX: R07.9 Chest pain, unspecified (principal); R06.02 Shortness of breath; I51.7 Cardiomegaly
CPT/HCPCS: 93306

== ENCOUNTER 2023-11-01 06:27 | Outpatient (CLI) | payer MEDICARE, SELFPAY ==
[2023-11-01 07:00] VITALS: PULSE 75; RESP 18; O2SAT 98
[2023-11-01] MEDS: albuterol 2.5 mg/3 mL Neb INHALATION (07:00)
[2023-11-01 07:05] VITALS: PULSE 73
== END 2023-11-01 06:28 | disposition home or self-care (01) ==
LOC: RT 06:28
PROVIDERS: PCP Nurse Practitioner Family; Visit Provider Internal Medicine Pulmonary Disease
DX: R06.02 Shortness of breath (principal); R06.09 Other forms of dyspnea; R94.2 Abnormal results of pulmonary function studies
CPT/HCPCS: 94060; 94618; 94726; 94729; J7613

== ENCOUNTER → 2023-11-07 13:32 | Outpatient (BNVA) | payer MEDICARE, SELFPAY | PROVIDERS: PCP Nurse Practitioner Family; Visit Provider Internal Medicine Pulmonary Disease | DX: R91.8 Other nonspecific abnormal finding of lung field (principal); J45.51 Severe persistent asthma with (acute) exacerbation; Z79.52 Long term (current) use of systemic steroids; I25.10 Atherosclerotic heart disease of native coronary artery without angina pectoris; I10 Essential (primary) hypertension | CPT/HCPCS: 99214 ==

== ENCOUNTER → 2024-03-08 10:48 | Outpatient (BNVA) | payer MEDICARE, SELFPAY | PROVIDERS: PCP Nurse Practitioner Family; Visit Provider Internal Medicine Pulmonary Disease | DX: R91.8 Other nonspecific abnormal finding of lung field (principal); J45.51 Severe persistent asthma with (acute) exacerbation; Z79.52 Long term (current) use of systemic steroids; M06.9 Rheumatoid arthritis, unspecified; I25.10 Atherosclerotic heart disease of native coronary artery without angina pectoris; Z87.891 Personal history of nicotine dependence | CPT/HCPCS: 99214 ==

== ENCOUNTER → 2024-04-30 08:51 | Outpatient (BNVA) | payer MEDICARE, SELFPAY | PROVIDERS: PCP Nurse Practitioner Family; Visit Provider Nurse Practitioner Family | DX: I25.10 Atherosclerotic heart disease of native coronary artery without angina pectoris (principal); I10 Essential (primary) hypertension | CPT/HCPCS: 99214 ==

== ENCOUNTER → 2024-05-07 10:42 | Outpatient (BNVA) | payer MEDICARE, SELFPAY | PROVIDERS: PCP Nurse Practitioner Family; Visit Provider Internal Medicine Critical Care Medicine | DX: R06.02 Shortness of breath (principal); J45.50 Severe persistent asthma, uncomplicated; Z79.52 Long term (current) use of systemic steroids; K21.9 Gastro-esophageal reflux disease without esophagitis; R91.8 Other nonspecific abnormal finding of lung field; Z68.41 Body mass index [BMI] 40.0-44.9, adult | CPT/HCPCS: 99214 ==

== ENCOUNTER → 2024-06-10 09:47 | Outpatient (BNVA) | payer MEDICARE, SELFPAY | PROVIDERS: PCP Nurse Practitioner Family; Visit Provider Internal Medicine Rheumatology | DX: M05.79 Rheumatoid arthritis with rheumatoid factor of multiple sites without organ or systems involvement (principal); E11.8 Type 2 diabetes mellitus with unspecified complications; Z79.899 Other long term (current) drug therapy; Z11.1 Encounter for screening for respiratory tuberculosis; Z11.59 Encounter for screening for other viral diseases; Z71.85 Encounter for immunization safety counseling | CPT/HCPCS: 36415; 80076; 82565; 85025; 85651; 86140; 86200; 86431; 86480; 86704; 86803; 87340; 99204 ==

== ENCOUNTER 2024-07-22 13:38 | Outpatient (CLI) | payer OTHER, SELFPAY ==
--- NOTE | 2024-07-22 13:48 | CT_ITS ---
WS: [id number] CT HEAD WITH AND WITHOUT CONTRAST HISTORY: ENLARGED LYMPH NODES TECHNIQUE: Noncontrast 3.0 mm axial images obtained from the vertex to the skull base. Additional griselda ging performed at 2.5 mm axial images status post IV contrast. Bone and soft tissue windows are revie wed. All CT scans at [facility] use at least one of these dose optimization techniques: autom ated exposure control; mA and/or kV adjustment per patient size (includes targeted exams where dose i s matched to clinical indication); or iterative reconstruction. CONTRAST: Omnipaque 350; 100 mL IV. DLP: 2597.28 mGy.cm COMPARISON: None available. No acute intracranial hemorrhage, edema or midline shift. Mild atrophy. Minimal small vessel ischemic disease. Small lacunar infarct LEFT dinh radiata. No enhancing mass or vascular malformations identified. Dural venous sinuses are normally enhancing. Visualized lime of Thomas is unremarkable. Paranasal sinuses as visualized: Small mucous retention cyst in the RIGHT maxillary sinus. No air-flu id levels. Mastoid air cells: Clear. Calvarium and scalp: Intact. CT/CT head wo/w con [id number] IMPRESSION: 1. No acute intracranial hemorrhage or edema. 2. No intracranial enhancing mass or vascular malformation. 3. Mild cerebral atrophy and remote lacunar infarct LEFT dinh radiata.
--- NOTE | 2024-07-22 13:48 | CT_ITS ---
WS: [id number] CT NECK WITH CONTRAST HISTORY: ENLARGED LYMPH NODES TECHNIQUE: Contiguous 2 mm axial images are performed through the neck with intravenous contrast. Sag ittal and coronal reformats are also submitted. All CT scans at [facility] use at least one o f these dose optimization techniques: automated exposure control; mA and/or kV adjustment per patient size (includes targeted exams where dose is matched to clinical indication); or iterative reconstruc tion. CONTRAST: CONTRAST: Omnipaque 350; 100 mL IV. DLP: 2597.28 mGy.cm COMPARISON: Cervical spine CT 06/07/2017 Superficial marker is placed on the LEFT neck at the site of the palpable abnormality. There is no la rge mass deep to this palpable marker. There is a tiny lymph node measuring 4 mm. No adjacent adenopa thy. Nasopharynx, oropharynx, hypopharynx and larynx are unremarkable. No soft tissue masses or abnormal e nhancement. Torus tubarius and fossa of Rosenmuller and parapharyngeal fat are normal. There are a few small bilateral cervical chain lymph nodes which are not enlarged. Thyroid gland and salivary glands are normally enhancing with no masses. Prior anterior cervical fusion from C3-C5. Visualized portions of the skull base demonstrate no abnormalities. Orbits and globes are within norm al limits. No soft tissue masses. Visualized paranasal sinuses and mastoid air cells are normal. Lung apices are clear. CT/CT neck w con* [id number] IMPRESSION: 1. There is a very small benign-appearing lymph node measuring 4 mm at the lev el of the palpable marker along the LEFT neck. 2. No cervical chain lymphadenopathy. 3. No laryngeal mass.
[2024-07-22] MEDS: iohexol 350 mg/mL 500 mL Btl (per mL) IV (14:27)
== END 2024-07-22 13:39 | disposition home or self-care (01) ==
PROVIDERS: PCP Nurse Practitioner Family; Visit Provider Dermatology
DX: R59.0 Localized enlarged lymph nodes (principal); M43.22 Fusion of spine, cervical region
CPT/HCPCS: 70470; 70491

== ENCOUNTER 2025-08-20 07:05 | Outpatient (CLI) | payer MEDICARE, SELFPAY ==
[2025-08-20 07:29] VITALS: BMI 41.7
--- NOTE | 2025-08-20 07:30 | ECG_ITS ---
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 Interpretive Statements Procedure: A total of 0.4 mg of Lexiscan was infused over 20 seconds. The stress phase was continued for a total of 5 minutes. Sestamibi was injected 20 seconds after the Lexiscan infusion. Findings:The patient's resting blood pressure is 151/89 mmHg with a heart rate of 64 bpm. The resting EKG showed normal sinus rhythm with left axis deviation, Nonspecific T wave flattening, and right bundle branch block. The heart rate gradually increased to a maximum of 96 bpm after Lexiscan injection. There is no significant change in blood pressure after Lexiscan. Conclusion: 1. Normal EKG response to Lexiscan infusion 2. No Lexiscan induced chest pain or cardiac arrhythmia. 3. Normal blood pressure and heart rate response. 4. Nuclear myocardial perfusion scan pending; see separate report. Electronically Signed On 08-20-2025 13:18:16 CDT by Sohan Obregon M.D. [email or web address]
--- NOTE | 2025-08-20 07:31 | NMCV_ITS ---
NM marleen perf SPECT r/s* [id number] Arturo Hernandez Age: 70 Gender: M : 1955 Exam Date: 08/20/2025 08:20 Ordering Phys: Cherelle Beatty MD ([email or web address]) Technologist: DESIRE Harden Exam Location: [facility] [place] Indications: cp STRESS TEST Please see separate stress test report in [facility] for full findings IMAGE PROTOCOL Rest/Stress 1 Lexiscan Day Radiopharmaceutical Dose (mCi) Administration Site Administered by Rest: Tc-99m 10.6 IV DESIRE Harden Sestamibi Stress:Tc-99m 32.9 IV Josefina Sheets, NETTING WEAVER Sestamibi Rest: 20-Aug-2025 60 Discovery 630 Stress: 20-Aug-2025 30 Discovery 630 0.4mg Lexiscan. Supine position only as patient was unable to lay prone. SPECT RESULTS Technical Quality: Good Raw Data Analysis: Normal Image Corrections: No attenuation or motion correction applied Summed Stress Score: 0 Summed Rest Score: 2 Summed Difference Score: 0 PERFUSION FINDINGS SPECT images demonstrate homogeneous tracer distribution throughout the myocardium. FUNCTIONAL RESULTS (calculated via Gated SPECT) Stress Image LV EF (%): 59 Stress EDV (mL):141 TID: 0.88 Stress ESV (mL):58 FUNCTIONAL FINDINGS: There is normal left ventricular systolic function. IMPRESSIONS Myocardial perfusion imaging is normal. There is normal left ventricular systolic function., EF 59%. Sohan Obregon MD, FACC (Electronically Signed) Final Date: 20 August 2025 12:34 S
[2025-08-20 08:42] VITALS: BP 147/94; PULSE 66
== END 2025-08-20 07:06 | disposition home or self-care (01) ==
PROVIDERS: PCP Nurse Practitioner Family; Visit Provider Internal Medicine Cardiovascular Disease
DX: R07.9 Chest pain, unspecified (principal); R06.02 Shortness of breath
CPT/HCPCS: 36415; 78452; 93017; 96374; A9500; J2785